=== PATIENT | male | born 1970 | race Caucasian/White ===

== ENCOUNTER 2016-10-08 12:39 | Outpatient (CLI) | payer MEDICARE ==
[2015-10-19 19:29] VITALS: O2SAT 98
[2016-10-08 13:20] LABS: BASOPHILS % (AUTO) 1 % (0-3); EOSINOPHILS % (AUTO) 5 % (0-9); HEMATOCRIT 44 % (39-53); MEAN CORPUSCULAR VOLUME 86 fL (80-100); NEUTROPHILS % (AUTO) 63.9 % (37-80)
== END 2016-10-08 12:40 | disposition home or self-care (01) | DRG 561 ==
LOC: CONVCARE 12:39
PROVIDERS: ATTEND Orthopaedic Surgery
DX: Z47.1 Aftercare following joint replacement surgery (principal); Z96.641 Presence of right artificial hip joint
CPT/HCPCS: 36415; 72170; 73501; 85025; 85651